=== PATIENT | female | born 1940 | race African-American/Black ===

== ENCOUNTER 2020-08-23 12:32 | Outpatient (REF) | payer MEDICARE, SELFPAY ==
--- NOTE | 2020-08-23 16:00 | MHC.AU.MED ---
Medical Clearance for Hearing Instrumentation Date: 08/27/20 Patient Name: Jerica Howard Date of : 1940 Referring Provider: Jeffrey White MD We have seen your patient on 08/27/20 and have determined that they are a candidate for amplification (See accompanying report). Specifically, they would benefit from: Hearing aid use in both ears There is a statute that addresses Medical Evaluation Requirements prior to fitting a patient with a hearing aid. According to [place] statute [facility] CMR:6.03(1), (a) General. Except as provided in 265 CMR 6.03(1)(b), a lace inspector shall not sell a hearing aid unless the prospective user has presented to the lace inspector a written statement signed by a licensed physician that states that the patient's hearing loss has been medically evaluated and the patient may be considered a candidate for a hearing aid. The medical evaluation must have taken place within the preceding six months. Please note: Due to the [place] Statute referenced above, we cannot accept a signature other than that of a licensed physician. BROADCAST JOURNALIST and PA signatures cannot be accepted. I am in agreement with the above recommendation. There is no medical contraindication for hearing instrumentation. Physician Signature Date Physician Name (Printed)
--- NOTE | 2020-08-23 16:05 | MHC.AU.P13 ---
Adult Audiological Evaluation Date of Visit: 08/23/20 Reason for Appointment: Audiological evaluation due to concern for decreased hearing. Her daughter notes that she doesn't always seem to hear well. Does patient feel they have a hearing loss?: Yes If Yes, Which Ear?: Both Ears Has hearing been tested previously?: No Hearing Handicap Inventory: HHIE SCORE: 16 Based on HHIE score, patient has: Mild to moderate perceived hearing handicap Ear History: History of Ear Wax Buildup: Both Ears Medical History: Medical History: Dizziness or Unsteadiness, High Blood Pressure Medical History (Other): Hysterectomy, gall bladder, tonsils, appendix removed. Cognitive decline Otoscopy: Right Ear: Partially occluded with cerumen Left Ear: Partially occluded with cerumen Tympanometry: Tympanometry performed due to: To assess integrity of the middle ear system Right Ear: Hypercompliant Middle Ear System (Type Ad) Left Ear: Normal Middle Ear System (Type A) Hearing Evaluation: Transducer(s) Used: Insert Earphones, Bone Conduction Method: Conventional Audiometry Stimuli Used: Pure Tones Right Ear: Description of Hearing: Normal hearing 250-500 Hz, sloping to a mild to moderately severe sensorineural hearing loss from 3988-4573 Hz. Left Ear: Description of Hearing: Normal hearing 250-500 Hz, sloping to a mild to moderately severe sensorineural hearing loss from 6951-3715 Hz. Speech Recognition Threshold (SRT): Method Used: Monitored Live Voice Stimuli Used: Spondee Words Right Ear: 30 dBHL Left Ear: 25 dBHL Word Discrimination: Method: Recorded Lists Word Lists Used: NU-6 Right Ear: 96% at 70 dBHL Left Ear: 88% at 70 dBHL Recommendations: Audiological re-evaluation in one year. Trial with amplification is recommended. Medical clearance from a physician is required before fitting. Hearing Aid Fitting will be scheduled when all materials arrive. See Hearing Aid Evaluation report for more information. Hearing aid(s) will be ordered after approval is received. Diagnosis: Primary Diagnosis: H90.3 Bilateral Sensorineural Hearing Loss Services Performed: Services Performed: Comprehensive Audiological Evaluation (CPT 99535) Tympanometry (CPT 06788) Signature: Provider: Abilio Collazo, CCC-A
--- NOTE | 2020-08-23 16:06 | MHC.AU.P13 ---
Hearing Aid Evaluation- Binaural Date of Visit: 08/23/20 Description of Hearing: Mild sloping to moderately severe sensorineural hearing loss bilaterally. Current Hearing Instrument Information: None Additional Information: Ms. Howard was diagnosed with a mild to moderately severe sensorineural hearing loss bilaterally. She and her daughter note that she does not always hear well and requires repetition. Binaural amplification is recommended to facilitate improved communication. Hearing Instrument Selection: Right Ear: Program Or Project Administrator: Phonak Model: Audeo M70-R Battery Size: Rechargeable Color: Sand beige Microbiology Instructor: Size 1 M Type of Mold: C-Shell Left Ear: Program Or Project Administrator: Phonak Model: Audeo M70-R Battery Size: Rechargeable Color: Sand beige Microbiology Instructor: Size 1 M Type of Mold: C-Shell Plan: Plan of Care for Hearing Instrument Fitting: Patient wishes to purchase hearing aids as prescribed Action Taken/Action Needed: Earmold Impressions Taken Prior authorization to be requested Medical Clearance to be requested from PCP/ENT Hearing Fitting to be scheduled when materials arrive Signature: Provider: Abilio Collazo, CCC-A
--- NOTE | 2020-08-27 11:01 | MHC.AU.P13 ---
Adult Audiological Evaluation Date of Visit: 08/27/20 Reason for Appointment: Audiological evaluation due to concern for decreased hearing. Her daughter notes that she doesn't always seem to hear well. Does patient feel they have a hearing loss?: Yes If Yes, Which Ear?: Both Ears Has hearing been tested previously?: No Hearing Handicap Inventory: HHIE SCORE: 16 Based on HHIE score, patient has: Mild to moderate perceived hearing handicap Ear History: History of Ear Wax Buildup: Both Ears Medical History: Medical History: Dizziness or Unsteadiness, High Blood Pressure Medical History (Other): Hysterectomy, gall bladder, tonsils, appendix removed. Cognitive decline Otoscopy: Right Ear: Partially occluded with cerumen Left Ear: Partially occluded with cerumen Tympanometry: Tympanometry performed due to: To assess integrity of the middle ear system Right Ear: Hypercompliant Middle Ear System (Type Ad) Left Ear: Normal Middle Ear System (Type A) Hearing Evaluation: Transducer(s) Used: Insert Earphones, Bone Conduction Method: Conventional Audiometry Stimuli Used: Pure Tones Right Ear: Description of Hearing: Normal hearing 250-500 Hz, sloping to a mild to moderately severe sensorineural hearing loss from 0408-1797 Hz. Left Ear: Description of Hearing: Normal hearing 250-500 Hz, sloping to a mild to moderately severe sensorineural hearing loss from 2584-9404 Hz. Speech Recognition Threshold (SRT): Method Used: Monitored Live Voice Stimuli Used: Spondee Words Right Ear: 30 dBHL Left Ear: 25 dBHL Word Discrimination: Method: Recorded Lists Word Lists Used: NU-6 Right Ear: 96% at 70 dBHL Left Ear: 88% at 70 dBHL Recommendations: Audiological re-evaluation in one year. Trial with amplification is recommended. Medical clearance from a physician is required before fitting. Hearing Aid Fitting will be scheduled when all materials arrive. See Hearing Aid Evaluation report for more information. Hearing aid(s) will be ordered after approval is received. Diagnosis: Primary Diagnosis: H90.3 Bilateral Sensorineural Hearing Loss Services Performed: Services Performed: Comprehensive Audiological Evaluation (CPT 74691) Tympanometry (CPT 04089) Signature: Provider: Abilio Collazo, CCC-A
--- NOTE | 2020-08-27 11:03 | MHC.AU.P13 ---
Hearing Aid Evaluation- Binaural Date of Visit: 08/27/20 Description of Hearing: Mild sloping to moderately severe sensorineural hearing loss bilaterally. Current Hearing Instrument Information: None Additional Information: Ms. Howard was diagnosed with a mild to moderately severe sensorineural hearing loss bilaterally. She and her daughter note that she does not always hear well and requires repetition. Binaural amplification is recommended to facilitate improved communication. Hearing Instrument Selection: Right Ear: Combatant Diver Qualified: Phonak Model: Audeo M70-R Battery Size: Rechargeable Color: Sand beige Bus Analyst: Size 1 M Type of Mold: C-Shell Left Ear: Combatant Diver Qualified: Phonak Model: Audeo M70-R Battery Size: Rechargeable Color: Sand beige Bus Analyst: Size 1 M Type of Mold: C-Shell Plan: Plan of Care for Hearing Instrument Fitting: Patient wishes to purchase hearing aids as prescribed Action Taken/Action Needed: Earmold Impressions Taken Prior authorization to be requested Medical Clearance to be requested from PCP/ENT Hearing Fitting to be scheduled when materials arrive Signature: Provider: Abilio Collazo, CCC-A
== END 2020-08-23 12:33 | disposition home or self-care (01) ==
LOC: HO.SH 12:32
PROVIDERS: Visit Provider Family Medicine
DX: Z46.1 Encounter for fitting and adjustment of hearing aid (principal); H90.3 Sensorineural hearing loss, bilateral
CPT/HCPCS: 92557; 92567; 92591; V5275

== ENCOUNTER 2020-11-22 09:51 | Outpatient (REF) | payer MEDICARE, SELFPAY | END 2020-11-22 09:52 | disposition home or self-care (01) | LOC: HO.HAP 09:51 | PROVIDERS: Visit Provider Family Medicine | DX: Z46.1 Encounter for fitting and adjustment of hearing aid (principal); H90.3 Sensorineural hearing loss, bilateral | CPT/HCPCS: V5011; V5020; V5160; V5261; V5264 ==

== ENCOUNTER 2020-12-10 13:42 | Outpatient (REF) | payer MEDICARE, SELFPAY | END 2020-12-10 13:43 | disposition home or self-care (01) | LOC: HO.LNP 13:42 | PROVIDERS: Visit Provider Family Medicine | DX: R30.0 Dysuria (principal) | CPT/HCPCS: 87086 ==

== ENCOUNTER 2021-02-12 10:58 | Outpatient (REF) | payer MEDICARE, SELFPAY ==
[2021-02-12 12:22] LABS: Blood Urea Nitrogen 5 mg/dL (9-16); Estimated Glomerular Filt Rate > 60
== END 2021-02-12 10:59 | disposition home or self-care (01) ==
LOC: HO.LAB 10:58
PROVIDERS: PCP Family Medicine; Visit Provider Psychiatry & Neurology Neurology
DX: G30.9 Alzheimer's disease, unspecified (principal)
CPT/HCPCS: 36415; 82565; 84520

== ENCOUNTER 2021-02-12 11:23 | Emergency (ER) | payer MEDICARE, SELFPAY ==
--- NOTE | ~2021-02-12 | CT_ITS ---
EXAMINATION: CT ABDOMEN AND PELVIS WITHOUT CONTRAST CLINICAL INFORMATION: Abdominal pain and weight loss COMPARISON: None TECHNIQUE: Multidetector volumetric imaging was performed from the superior aspect of the liver through the pubic symphysis. Sagittal and coronal reformatted images were obtained on the technologist's workstation. This CT examination was performed using dose optimization techniques as appropriate, variously including the following: *Automated exposure control *Adjustment of mA and/or kV according to patient size (this includes techniques or standardized protocols for targeted exams where dose is matched to indication/reason for exam; i.e. extremities or head) *Use of iterative reconstruction technique DLP: 471 mGy-cm FINDINGS: LUNG BASES: The visualized lung bases are unremarkable. LIVER, GALLBLADDER, AND BILIARY TREE: There is peripheral capsular calcification along the surface of the liver. Liver is otherwise unremarkable. The gallbladder is been removed. There is no biliary duct dilatation. PANCREAS: Unremarkable. SPLEEN: Unremarkable. ADRENAL GLANDS: Unremarkable. KIDNEYS AND URETERS: The kidneys are normal in size, shape, and attenuation. No hydronephrosis, hydroureter, or calculi seen. No perinephric stranding. BLADDER: There is question of wall thickening along the anterior wall of the bladder. GASTROINTESTINAL TRACT: The small and large bowel are unremarkable. The appendix is not identified. The stomach is not optimally distended. ABDOMINAL WALL: No significant hernia is appreciated. There are postsurgical changes to the anterior abdominal wall. There is increased soft tissue superficial to the left pubic symphysis, question representing postsurgical change axial image 73 series 3 and coronal reconstructed image 18 LYMPH NODES: Normal. VASCULAR: There is evidence of atherosclerotic disease. No aneurysm is seen. PELVIC VISCERA: The uterus appears to have been removed. No pelvic mass is seen. There are small peritoneal calcifications in the pelvis. There is no ascites. OSSEOUS STRUCTURES: There are degenerative changes of the spine. CT/CT abdomen pelvis wo con IMPRESSION: Peripheral or capsular calcifications of the liver and small peritoneal calcifications in the pelvis. Question mild anterior bladder wall thickening of the anterior bladder wall.
[2021-02-12 11:33] VITALS: BP 138/74; PULSE 67; RESP 18; O2SAT 97; BMI 22.6
--- NOTE | 2021-02-12 11:53 | ED.ABDPAIN ---
HPI - Abdominal Pain General Chief Complaint: Abdominal Pain Stated Complaint: abd pain Time Seen by Provider: 02/12/21 11:52 Source: patient and family (Daughter) Mode of arrival: ambulatory Limitations: no limitations History of Present Illness HPI narrative: 80 years old female brought in by her daughter for evaluation of abdominal pain and weight loss for the past month. Patient was at neurology office for follow-up for Alzheimer dementia, daughter brought the patient because she concern of losing 30 lb in the past month, and left abdominal pain that is intermittent started about a month ago localized to the left mid abdomen, no other associated symptoms no fever, no chills. No nausea, no vomiting, normal bowel movement. Related Data Home Medications Medication Instructions Recorded Confirmed flu vacc (65yr 0.5 ml IM DIRECTED 05/29/20 up)-MF59C(PF) 45 mcg(15 mcgx3)/0.5 mL IM syringe flu vacc (65yr ml IM 05/29/20 up)-MF59C(PF) 60 mcg(15 mcgx4)/0.5 mL IM syringe fluticasone propionate 50 1 spray INTRANASAL DAILY 05/29/20 mcg/actuation nasal spray,suspension ibuprofen 600 mg tablet 0 mg PO 05/29/20 ketotifen fumarate 0.025 % (0.035 1 drp OPHTHALMIC (EYE) BID 05/29/20 %) eye drops lisinopril 20 mg tablet 20 mg PO DAILY 05/29/20 omeprazole 20 mg capsule,delayed 0 mg PO 05/29/20 release trazodone 100 mg tablet 100 mg PO BEDTIME 12/10/20 trazodone 50 mg tablet 50 mg PO BEDTIME PRN 01/17/21 Previous Rx's Medication Instructions Recorded underpads 23 X 36 #72 ea 06/12/20 walker #1 ea 07/05/20 pull ups briefs #60 ea 07/08/20 amlodipine 10 mg tablet 10 mg PO DAILY #90 tab NS 09/12/20 atenolol 25 mg tablet 25 mg PO DAILY #90 tab 09/12/20 atorvastatin 40 mg tablet 40 mg PO DAILY #90 tab 09/12/20 loratadine 10 mg tablet 10 mg PO DAILY #90 tab NS 09/12/20 memantine 28 mg capsule 28 mg PO DAILY #90 cap 09/12/20 sprinkle,extended release 24hr donepezil 10 mg tablet 10 mg PO DAILY 30 Days #30 tab 10/17/20 gabapentin 100 mg capsule 100 mg PO BID #60 cap 11/28/20 topiramate 50 mg tablet 50 mg PO DAILY #30 tab 12/10/20 prednisone 20 mg tablet 40 mg PO DAILY 5 Days #10 tab 01/17/21 acetaminophen 325 mg tablet 650 mg PO Q6H PRN #360 tab 01/23/21 trazodone 50 mg tablet 25 - 50 mg PO BEDTIME PRN #30 tab 01/23/21 Allergies Allergy/AdvReac Type Severity Reaction Status Date / Time No Known Allergies Allergy Verified 02/12/21 11:52 Review of Systems Review of Systems All other systems are reviewed and are negative Constitutional: Reports as per HPI and Reports no additional constitutional complaints Eyes: Reports as per HPI and Reports no additional eye complaints Reports system reviewed and no additional complaints, except as documented Cardiovascular: Reports as per HPI and Reports no additional cardiovascular complaints Respiratory: Reports as per HPI and Reports no additional respiratory complaints Gastrointestinal: Reports as per HPI and Reports no additional gastrointestinal complaints Genitourinary: Reports no additional female genitourinary complaints Musculoskeletal: Reports no additional musculoskeletal complaints Skin/Breast: Reports system reviewed and no additional complaints, except as docu Psychiatric: Reports no additional psychiatric complaints Endocrine: Reports no additional endocrine complaints Hematologic/Lymphatic: Reports no additional hematologic/lymphatic complaints Allergic/Immunologic: Reports no additional allergic/immunologic complaints Reports system reviewed and no additional complaints, except as documented and Reports Abnormal speech present Physical Exam Vital Signs: Vital Signs: Last Vital Signs Pulse 67 02/12/21 11:33 Resp 18 02/12/21 11:33 BP 138/74 02/12/21 11:33 Pulse Ox 97 02/12/21 11:33 Body Mass Index 22.6 Vital signs have been reviewed as appeared to be correct. Blood pressure normal. Heart rate normal. Respiration rate normal. Temperature normal. Oxygen saturation normal. Appearance: Alert. Oriented X3. No acute distress. Head: Normal external exam. Normocephalic. Atraumatic. No [place] signs noted. No raccoon eyes noted Eyes: PERRLA. EOMI. Conjunctiva and sclera normal. Eyelids normal. ENT: TM's Normal. Pharynx normal. Uvula midline. Moist mucous membranes. No trismus noted. No drooling noted. No muffled voice noted. Neck: Normal inspection. Neck supple. FROM. No adenopathy. Thyroid Normal. No meningeal signs. No neck mass noted. CVS: Normal heart rate and rhythm. Heart sound normal. No murmurs noted. Pulses normal throughout. Respiratory: No respiratory distress. Painless inspiration. Breath sounds normal. No wheezes/rales/rhonchi noted. Chest nontender. No accessory muscle usage noted or decreased air movement noted. Abdomen: Soft and nontender. Bowel sounds normal in all 4 quadrants. No distention noted. No organomegaly noted. No visible injury noted. Back: No CVA tenderness. Full range of motion noted. Skin: Skin warm and dry. Normal skin color. Normal skin turgor. No rashes/lesions/lacerations noted. Extremities: No lower extremity edema. Extremities exhibit normal range of motion. Extremities nontender. Neuro: Oriented X 3. Cranial nerve exam: II-XII are grossly intact No motor deficit. No sensory deficit. Reflexes normal. Course Course Course Narrative: Assessment and plan. 80-year-old female came in after she lost 25 lb over a month, complaining of abdominal pain. CT of the abdomen pelvis nothing to explain patient's symptoms, labs are unremarkable. As discussed with daughter patient will require further endoscopy specially patient never had one. MDM - Abdominal Pain Lab Data Attestation: I reviewed the patient's lab results. Result diagrams: 02/12/21 12:49 02/12/21 12:19 Labs: Lab Results 02/12/21 02/12/21 02/12/21 Range/Units 11:49 12:19 12:49 WBC 5.1 (4.8-10.8) X10*3/uL RBC 4.97 (4.20-5.50) X10*6/uL Hgb 13.8 (12.0-16.0) g/dl Hct 40.8 (37-47) % MCV 82.1 (80-98) fL MCH 27.8 (27.0-33.0) pg MCHC 33.8 (31.0-35.0) g/dl RDW 16.4 H (11.0-16.0) % Plt Count 478 H (160-400) X10*3/uL MPV 9.6 (9.4-12.3) fL Immature Gran % (Auto) 0.2 (0.0-0.4) % Neut % (Auto) 60.7 (45-73) % Lymph % (Auto) 28.8 (20-40) % [place] % (Auto) 8.5 (2-11) % Eos % (Auto) 1.4 (0-4) % Baso % (Auto) 0.4 (0-2) % Lymph # (Auto) 1.5 (1.2-4.9) X10*3/uL [place] # (Auto) 0.4 (0.1-1.2) X10*3/uL Eos # (Auto) 0.1 (0.0-0.4) X10*3/uL Baso # (Auto) 0.0 (0.0-0.2) X10*3/uL Abs Immat Gran (auto) 0.01 (0.00-0.03) X10*3/uL Absolute Neuts (auto) 3.1 (2.0-8.3) X10*3/uL Absolute Nucleated RBC 0.000 (0.0-0.012) X10*3/uL Nucleated RBC % (auto) 0.0 (0.0-0.2) /100WBC Sodium 135 (135-145) mmol/L Potassium 4.1 (3.3-5.1) mmol/L Chloride 106 (96-108) mmol/L Carbon Dioxide 21 L (22-29) mmol/L Anion Gap 12 (12-20) BUN 5 L (9-16) mg/dL Creatinine 0.76 (0.5-1.4) mg/dL Estim Creat Clear Calc 54.3 Estimated GFR > 60 Random Glucose 84 (60-115) mg/dL Calcium 10.1 (8.4-10.2) mg/dL Total Bilirubin 0.6 (0.0-1.0) mg/dL Direct Bilirubin 0.2 (0.0-0.5) mg/dL AST 17 (5-31) U/L ALT 15 (0-31) U/L Alkaline Phosphatase 58 (39-117) U/L Total Protein 6.7 (6.5-8.0) g/dL Albumin 4.2 (3.5-5.0) g/dL Lipase 36 (8-78) U/L Urine Color YELLOW Urine Appearance CLEAR Urine pH 6.5 (5.0-8.0) Ur Specific [place] <= 1.005 (1.005-1.025) Urine Protein NEG (NEG-TRACE) MG/DL Urine Glucose (UA) NEG (NEG) MG/DL Urine Ketones NEG (NEG) MG/DL Urine Blood NEG (NEG) Urine Nitrite NEG (NEG) Ur Leukocyte Esterase TRACE H (NEG) Urine RBC 0 (0) /HPF Urine WBC 0-2 (0-4) /HPF Ur Squamous Epith Cells 1+ /LPF Urine Bacteria TRACE /LPF Imaging Data CT scan - abdomen: Radiologist's impression: Peripheral or capsular calcifications of the liver and small peritoneal calcifications in the pelvis. Question mild anterior bladder wall thickening of the anterior bladder wall.? Discharge Plan Discharge Clinical Impression: Abdominal pain Patient Disposition: Home, Self-Care Instructions: Abdominal Pain (ED) Prescriptions: No Action (DME) walker Misc See Rx Instructions .ROUTE .MEDSUPPLY Qty: 1 RF: 0 amlodipine 10 mg tablet 10 mg PO DAILY Qty: 90 RF: 1 atenolol 25 mg tablet 25 mg PO DAILY Qty: 90 RF: 1 atorvastatin 40 mg tablet 40 mg PO DAILY Qty: 90 RF: 1 loratadine 10 mg tablet 10 mg PO DAILY Qty: 90 RF: 1 memantine 28 mg capsule,sprinkle,ER 24hr 28 mg PO DAILY Qty: 90 RF: 1 donepezil 10 mg tablet 10 mg PO DAILY 30 Days Qty: 30 RF: 2 gabapentin 100 mg capsule 100 mg PO BID Qty: 60 RF: 4 acetaminophen 325 mg tablet 650 mg PO Q6H PRN (Reason: for fever) Qty: 360 RF: 3 trazodone 50 mg tablet 25 - 50 mg PO BEDTIME PRN (Reason: for insomnia) Qty: 30 RF: 1 omeprazole 20 mg capsule,delayed release(DR/EC) 0 mg PO RF: 0 lisinopril 20 mg tablet 20 mg PO DAILY RF: 0 Fluad Quad 2019-(65y up)(PF) 60 mcg (15 mcg x 4)/0.5 mL syringe IM RF: 0 fluticasone propionate 50 mcg/actuation spray,suspension 1 spray intranasal DAILY RF: 0 ketotifen fumarate 0.025 % (0.035 %) drops 1 drp ophthalmic (eye) BID RF: 0 Fluad 9459-1990 (65 yr up)(PF) 45 mcg (15 mcg x 3)/0.5 mL syringe 0.5 ml IM DIRECTED RF: 0 ibuprofen 600 mg tablet 0 mg PO RF: 0 (DME) underpads 23 X 36 pad See Rx Instructions .ROUTE .MEDSUPPLY Qty: 72 RF: 0 (DME) pull ups briefs large See Rx Instructions .Route .MEDSUPPLY Qty: 60 RF: 11 topiramate 50 mg tablet 50 mg PO DAILY Qty: 30 RF: 3 prednisone 20 mg tablet 40 mg PO DAILY 5 Days Qty: 10 RF: 0 Referrals: Jordon Gray MD [Physician] - 2 days PMF Past Medical History Surgical History History of gynecologic surgery History of hysterectomy History of tonsillectomy Hx of cholecystectomy Family History Family History Father No problems noted. Mother No problems noted. Daughter No problems noted. Social History Social History Housing: Apartment Alcohol intake: never Patient Tobacco Use Status: Never used Tobacco Advance Directives: Yes Advance Directives Information Provided: Yes Advance Directives on File: No service: No Current occupational status: retired
[2021-02-12 11:59] LABS: Glucose Urine UA NEG (NEG); Leukocyte Esterase Urine TRACE (NEG); Nitrite Urine NEG (NEG); PH 6.5 (5.0-8.0); Specific Gravity - Urine <= 1.005 (1.005-1.025); UACC Culture Trigger YES; Urine Blood NEG (NEG); Urine Ketones NEG (NEG); Urine Protein NEG (NEG-TRACE)
[2021-02-12 12:00] LABS: Appearance Urine CLEAR; Color Urine YELLOW
[2021-02-12 12:17] LABS: Bacteria Urine TRACE /LPF; RBC Urine 0 /HPF (0); Squamous Epithelial Cell Urine 1+ /LPF; WBC Urine 0-2 /HPF (0-4)
--- NOTE | 2021-02-12 12:49 | PC.NURSE ---
PATIENT DIFFICULT STICK, DRAWN BY SEVERAL PEOPLE AND LABS WERE HEMOLYZED. PATIENT PHLEBOTOMY WAS CALLED TO TRY TO DRAW BLOOD WORK.
[2021-02-12 12:50] LABS: Alanine Aminotransferase 15 U/L (0-31); Albumin Level 4.2 g/dL (3.5-5.0); Alkaline Phosphatase 58 U/L (39-117); Anion Gap 12 (12-20); Aspartate Amino Transferase 17 U/L (5-31); Bilirubin Direct 0.2 mg/dL (0.0-0.5); Bilirubin Total 0.6 mg/dL (0.0-1.0); Blood Urea Nitrogen 5 mg/dL (9-16); Calcium 10.1 mg/dL (8.4-10.2); Carbon Dioxide 21 mmol/L (22-29); Chloride 106 mmol/L (96-108); Creatinine Clr Calc Pharmacy 54.3; Estimated Glomerular Filt Rate > 60; Glucose Random 84 mg/dL (60-115); Lipase 36 U/L (8-78); Potassium 4.1 mmol/L (3.3-5.1); Sodium 135 mmol/L (135-145); Total Protein 6.7 g/dL (6.5-8.0)
[2021-02-12 12:55] LABS: Basophils Percent Auto 0.4 % (0-2); Eosinophils Absolute Auto 0.1 X10*3/uL (0.0-0.4); Eosinophils Percent Auto 1.4 % (0-4); Hematocrit 40.8 % (37-47); Hemoglobin 13.8 g/dl (12.0-16.0); Imm Gran Abs Auto 0.01 X10*3/uL (0.00-0.03); Imm Gran Pct Auto 0.2 % (0.0-0.4); Lymphocytes Absolute Auto 1.5 X10*3/uL (1.2-4.9); Lymphocytes Percent Auto 28.8 % (20-40); Mean Corpuscular HGB Conc 33.8 g/dl (31.0-35.0); Mean Corpuscular Hemoglobin 27.8 pg (27.0-33.0); Mean Corpuscular Volume 82.1 fL (80-98); Mean Platelet Volume 9.6 fL (9.4-12.3); Monocytes Absolute Auto 0.4 X10*3/uL (0.1-1.2); Monocytes Percent Auto 8.5 % (2-11); Neutrophils Absolute Auto 3.1 X10*3/uL (2.0-8.3); Neutrophils Percent Auto 60.7 % (45-73); Platelet Count 478 X10*3/uL (160-400); Red Blood Count 4.97 X10*6/uL (4.20-5.50); Red Cell Distribution Width 16.4 % (11.0-16.0); White Blood Count 5.1 X10*3/uL (4.8-10.8)
[2021-02-12 13:24] VITALS: BP 156/71; PULSE 63; RESP 18; O2SAT 98
== END 2021-02-12 13:28 | disposition home or self-care (01) ==
PROVIDERS: Emergency Provider Emergency Medicine; PCP Family Medicine
DX: R10.9 Unspecified abdominal pain (principal); Z79.899 Other long term (current) drug therapy
CPT/HCPCS: 36415; 74176; 80048; 80076; 81001; 83690; 85025; 87086; 99284

== ENCOUNTER 2021-03-05 13:19 | Outpatient (REF) | payer MEDICARE, SELFPAY ==
--- NOTE | ~2021-03-05 | MR_ITS ---
EXAMINATION: MR BRAIN WITHOUT CONTRAST CLINICAL INFORMATION: Insomnia and migraine. No brain tumor. COMPARISON: Head CT 11/29/2019. TECHNIQUE: Multiplanar, multisequence imaging of the brain was performed without intravenous contrast. The patient declined contrast administration. FINDINGS: There is no acute infarction, mass, hemorrhage, or extra-axial collection. Moderate patchy foci of T2/FLAIR hyperintensity are seen in the cerebral white matter and central natanael most typical of chronic microangiopathy. The ventricles and sulci are commensurate with mild degree of brain parenchymal volume loss noted. The flow voids of the major intracranial arteries appear intact. The bones and extracranial soft tissues are unremarkable. MR/MR head/brain wo con IMPRESSION: Motion degraded exam without evidence of acute intracranial abnormality. Background changes of moderate chronic microangiopathy.
== END 2021-03-05 13:20 | disposition home or self-care (01) ==
LOC: HO.MRI 13:19
PROVIDERS: PCP Family Medicine; Visit Provider Psychiatry & Neurology Neurology
DX: G30.9 Alzheimer's disease, unspecified (principal); F02.80 Dementia in other diseases classified elsewhere, unspecified severity, without behavioral disturbance, psychotic disturbance, mood disturbance, and anxiety; G47.00 Insomnia, unspecified; R63.4 Abnormal weight loss
CPT/HCPCS: 70551

== ENCOUNTER → 2021-04-15 12:56 | Outpatient (BNVA) | payer MEDICARE, SELFPAY | PROVIDERS: PCP Family Medicine; Referring Provider Family Medicine; Visit Provider Nurse Practitioner | DX: R10.30 Lower abdominal pain, unspecified (principal); R63.4 Abnormal weight loss | CPT/HCPCS: 99202 ==

== ENCOUNTER 2021-07-15 07:22 | Day surgery (SDC) | payer MEDICARE, SELFPAY ==
[2021-07-09 16:29] VITALS: BMI 23.9
--- NOTE | 2021-07-14 10:45 | HO.ANESPROP2 ---
Documented by User: Sowmya Morales NP 07/14/21 10:46 HPI - Anesthesia Eval Consult details Narrative: 80yo F for Upper Endoscopy and Colonoscopy [facility] Active Problems Active Problems: All Active Problems (Updated 07/09/21 @ 16:35 by Ashley Stuart RN) Unsteady gait (Acute) Osteoarthritis of right knee (Acute) Lower extremity weakness (Acute) Incontinence of urine (Acute) Alzheimer's dementia with behavioral disturbance (Acute) Right calf pain (Acute) Insomnia (Acute) Decreased hearing of right ear (Acute) Headache (Acute) Dysuria (Acute) Post-nasal drip (Acute) Abdominal pain (Acute) Weight loss (Acute) Lower abdominal pain (Acute) Screening due (Acute) Past Medical History Medical History Alzheimer's dementia HTN (hypertension) Osteoarthritis of right knee Post-nasal drip Family History Family History Father No problems noted. Mother No problems noted. Daughter No problems noted. Surgical History Surgical History History of gynecologic surgery History of hysterectomy History of tonsillectomy Hx of cholecystectomy Social History Social History Household Members Other:: chace Chase Housing: Apartment Alcohol intake: never Patient Tobacco Use Status: Never used Tobacco Are you DNR?: No Advance Directives: No Advance Directives Information Provided: Yes Advance Directives on File: No Recently lost weight without trying: Yes How much weight loss: 34pounds or more Eating poorly because of decreased appetite: No Nutrition screen score: 6 service: No Current occupational status: retired Meds Allergies Allergy/AdvReac Type Severity Reaction Status Date / Time No Known Allergies Allergy Verified 07/11/21 12:55 Home Medications Medication Instructions Recorded Confirmed Last Taken Type ketotifen fumarate 0.025 % (0.035 1 drp OPHTHALMIC (EYE) BID PRN 05/29/20 07/09/21 Unknown History %) eye drops lisinopril 20 mg tablet 20 mg PO DAILY 05/29/20 07/09/21 Unknown History trazodone 100 mg tablet 150 mg PO BEDTIME 12/10/20 04/30/21 Unknown History Exam Exam Date and Time: July 14, 2021 1045 Height,Weight and Vital Signs: Height 5 ft 2 in Weight 59.421 kg Assessment and Plan Assessment Anesthesia Assessment: Chart Reviewed Documented by User: Manuel Reyes 07/15/21 08:56 PMFSH Past Medical History Medical History Alzheimer's dementia HTN (hypertension) Osteoarthritis of right knee Post-nasal drip Family History Family History Father No problems noted. Mother No problems noted. Daughter No problems noted. Family history of problems with anesthesia: No Surgical History Surgical History History of gynecologic surgery History of hysterectomy History of tonsillectomy Hx of cholecystectomy History of Problems with Anesthesia: No Social History Social History Household Members Other:: chace Chase Housing: Apartment Alcohol intake: never Patient Tobacco Use Status: Never used Tobacco Are you DNR?: No Advance Directives: No Advance Directives Information Provided: Yes Advance Directives on File: No Recently lost weight without trying: Yes How much weight loss: 34pounds or more Eating poorly because of decreased appetite: No Nutrition screen score: 6 service: No Current occupational status: retired Meds Allergies Allergy/AdvReac Type Severity Reaction Status Date / Time No Known Allergies Allergy Verified 07/11/21 12:55 Home Medications Medication Instructions Recorded Confirmed Last Taken Type ketotifen fumarate 0.025 % (0.035 1 drp OPHTHALMIC (EYE) BID PRN 05/29/20 07/09/21 Unknown History %) eye drops lisinopril 20 mg tablet 20 mg PO DAILY 05/29/20 07/09/21 Unknown History trazodone 100 mg tablet 150 mg PO BEDTIME 12/10/20 04/30/21 Unknown History Exam Airway Mallampati Class: II Neck ROM: Full Denture: Upper and Lower Loose/Missing/Broken Teeth: Yes Heart: rrr Lungs: bl breath sounds Assessment and Plan Assessment Anesthesia Assessment: Anesthesia Plan Discussed Final Anesthetic Review Family History of Problems with Anesthesia: No History of Problems with Anesthesia: No NPO: Yes ASA Class: II Final Preanesthetic Review: Meds/Allgs Chart Reviewed and Anes Risks/Benef Reviewed Patient Risk: Intermediate Procedure Risk: Intermediate Anesthetic Plan Anesthetic Plan: MAC: Disposition: Standard PACU
--- NOTE | 2021-07-15 07:49 | MHC.SHP ---
Pre-Procedural Eval Section A Date of Service: 07/15/21 The patient is an INPATIENT: No The History & Physical has been completed within 30 days and I have reviewed it.: No Section B Chief Complaint: abnormal weight loss,lower abd pain Details of Present Illness: abdominal pain, poor PO intake, wt loss Relevant Family History (Specify if Yes): No Relevant Social History: None Present Medications: see Short Stay Collaborative assessment Medical History: Significant History (dementia, Htn, wt loss) History of Previous Operations: Relevant previous surgery/procedure and date(s) (History of gynecologic surgery History of hysterectomy History of tonsillectomy Hx of cholecystectomy) Allergies: Allergies Allergy/AdvReac Type Severity Reaction Status Date / Time No Known Allergies Allergy Verified 07/11/21 12:55 Review of Systems Sugical H&P ROS: Negative: Constitution, Cardiovascular and Respiratory and Yes, Specify: Neurological (dementia) and Gastrointestinal (wt loss) Exam Surgical H&P Exam: Normal: Heart, Normal: Lungs, Normal: Extremities and Normal: Abdomen Plan Diagnosis/Plan: Unchanged I have reviewed the history and physical and performed a pertinent physical examination on my patient. No changes have occurred unless specified.
[2021-07-15 07:58] VITALS: BP 133/70; PULSE 70; RESP 18; TEMP 36.6; O2SAT 99
[2021-07-15] MEDS: Lactated Ringers 1,000 ML 100 ML IVCONT (08:03)
--- NOTE | 2021-07-15 08:52 | P.BOP_ITS ---
Brief Operative Note Date of Service: 07/15/21 Pre-op diagnosis: abdominal pain, poor PO intake, wt loss Post-op diagnosis: other (Hiatal hernia, gastritis, diverticulosis, hemorrhoids ) Procedure: FLEXIBLE TRANSORAL UPPER GASTROINTESTINAL ENDOSCOPY WITH BIOPSIES AND COLONOSCOPY TILL CECUM WITH BIOPSIES UPPER ENDOSCOPY Consent: Indications for the procedure and potential complications of bleeding, perforation, reaction to medications and missed diagnosis were discussed with the patient's daughter and HCP and informed consent was obtained from the daughter.. Instrument: Olympus GIF H 190 mid size upper endoscope Monitoring: Vital signs and clinical assessment, continuous EKG monitoring, Pulse oximetry, Carbon Dioxide monitoring and blood pressure monitoring were done throughout the procedure. Procedure: The patient was placed in the left lateral decubitis position and pre-procedure medications were administered and a bite block was placed. The endoscope was inserted into the mouth and advanced under direct vision to the third part of duodenum. A careful inspection was made as the upper endoscope was withdrawn including a retroflexed examination of the proximal stomach; Findings and interventions are described below. Findings: Larynx: Normal Esophagus: GE junction at 34 cms, small hiatal hernia 34 to 36 cms. No esophagitis or Ramos's. Stomach: Mild gastric erythema. Biopsies were obtained from the gastric body and antrum. Grade 2 flap valve on retroflexed examination of the cardia. Duodenum: Normal bulb and descending duodenum. Biopsies obtained from 3rd part of duodenum to check for celiac sprue. Intervention: Biopsies as noted above COLONOSCOPY PROCEDURE NOTE Consent: Indications for the procedure and potential complications of bleeding, perforation, reaction to medications and missed diagnosis were discussed with the patient and informed consent was obtained. Instrument: Olympus PCF H 190 L variable stiffness pediatric colonoscope Monitoring: Vital signs and clinical assessment, intermittent blood pressure monitoring, continuous EKG monitoring, Pulse oximetry and Carbon Dioxide monitoring were done throughout the procedure. Colon withdrawl time was 13 minutes. Procedure: The patient was placed in the left lateral decubitis position and pre-procedure medications were administered. After a digital rectal examination of the ano-rectum, the video colonoscope was inserted into the rectum and advanced through the colon to the cecum. The colonoscope was slowly withdrawn in a retrograde panoramic fashion and the colon mucosa was carefully examined including a retroflexed view of the rectum. Findings and interventions are described below. Procedure Difficulty: : Without difficulty Findings: Terminal Ileum: 5 cms was examined and appeared normal Cecum: Normal Ascending Colon: Normal Transverse Colon: Normal Descending Colon: Normal Sigmoid Colon: Severe diverticulosis with tortuous colon Rectum: Normal Ano-rectum: Moderate internal hemorrhoids Colon preparation: Good Impression and Post Procedure Diagnosis: Endoscopy Findings: ESOPHAGUS: Small hiatal hernia STOMACH: Gastritis DUODENUM: Normal - biopsied to check for celiac sprue Colonoscopy Findings: No polyps were detected. Random biopsies were obtained from the colon to check for microscopic colitis Severe diverticulosis seen in the sigmoid colon Moderate hemorrhoids on retroflexed exam. No clear etiology found for wt loss - possibly related to patient's dementia Plan: Await pathology results Patient has an appointment on 07/29/21 in the [facility] with Aprli Dupont NP . Repeat screening colonoscopy is not recommended given advanced age and dementia. Diverticulosis handouts were given in the discharge area Surgeon: Prachi Toledo MD Anesthesia: MAC (Dr Reyes) Was an Lap Cutter Truer Operator used for this Procedure?: No Lap Cutter Truer Operator: Yumiko Diaz Estimated blood loss (mL): 0 Pathology: other (A. small bowel bxs, R/O H. celiac B. gastric antrum bxs, R/O H. pylori C. gastric body bxs D. random colon bxs, R/O microscopic colitis) Condition: stable Disposition: PACU
--- NOTE | 2021-07-15 08:53 | P.OP_ITS ---
Operative Note Operative Note Date of Service: 07/15/21 Narrative: Pre-op diagnosis:?abdominal pain, poor PO intake, wt loss Post-op diagnosis:?other (Hiatal hernia, gastritis, diverticulosis, hemorrhoids ) Procedure:? FLEXIBLE TRANSORAL UPPER GASTROINTESTINAL ENDOSCOPY WITH BIOPSIES AND COLONOSCOPY TILL CECUM WITH BIOPSIES UPPER ENDOSCOPY Consent:?Indications for the procedure and potential complications of bleeding, perforation, reaction to medications and missed diagnosis were discussed with the patient's daughter and HCP and informed consent was obtained from the daughter.. Instrument:?Olympus GIF H 190 mid size upper endoscope Monitoring: Vital signs and clinical assessment, continuous EKG monitoring, Pulse oximetry, Carbon Dioxide monitoring and blood pressure monitoring were done throughout the procedure. Procedure:?The patient was placed in the left lateral decubitis position and pre-procedure medications were administered and a bite block was placed. The endoscope was inserted into the mouth and advanced under direct vision to the third part of duodenum. A careful inspection was made as the upper endoscope was withdrawn including a retroflexed examination of the proximal stomach; Findings and interventions are described below. Findings: Larynx:? Normal Esophagus:?GE junction at 34 cms, small hiatal hernia 34 to 36 cms. No esophagitis or Ramos's. Stomach:?Mild gastric erythema. Biopsies were obtained from the gastric body and antrum. Grade 2 flap valve on retroflexed examination of the cardia. Duodenum:?Normal bulb and descending duodenum.? Biopsies obtained from 3rd part of duodenum to check for celiac sprue. Intervention:?Biopsies as noted above COLONOSCOPY PROCEDURE NOTE Consent:?Indications for the procedure and potential complications of bleeding, perforation, reaction to medications and missed diagnosis were discussed with the patient and informed consent was obtained. Instrument:?Olympus PCF H 190 L variable stiffness pediatric colonoscope Monitoring:?Vital signs and clinical assessment, intermittent blood pressure monitoring, continuous EKG monitoring, Pulse oximetry and Carbon Dioxide monitoring were done throughout the procedure. Colon withdrawl time was 13 minutes. Procedure:?The patient was placed in the left lateral decubitis position and pre-procedure medications were administered. After a digital rectal examination of the ano-rectum, the video colonoscope was inserted into the rectum and advanced through the colon to the cecum. The colonoscope was slowly withdrawn in a retrograde panoramic fashion and the colon mucosa was carefully examined including a retroflexed view of the rectum. Findings and interventions are described below. Procedure Difficulty:?: Without difficulty Findings: Terminal Ileum: 5 cms was examined and appeared normal Cecum:? Normal Ascending Colon:??Normal Transverse Colon:??Normal Descending Colon:? Normal Sigmoid Colon:??Severe diverticulosis with tortuous colon Rectum:??Normal Ano-rectum:??Moderate internal hemorrhoids Colon preparation:? Good? Impression and Post Procedure Diagnosis: Endoscopy Findings: ESOPHAGUS: Small hiatal hernia STOMACH: Gastritis DUODENUM: Normal - biopsied to check for celiac sprue Colonoscopy Findings: No polyps were detected. Random biopsies were obtained from the colon to check for microscopic colitis Severe diverticulosis seen in the sigmoid colon Moderate hemorrhoids on retroflexed exam. No clear etiology found for wt loss - possibly related to patient's dementia Plan: Await pathology results Patient has an appointment on 07/29/21 in the GI Clinic with? April Dupont NP . Repeat screening colonoscopy is not recommended given advanced age and dementia. Diverticulosis handouts were given in the discharge area Surgeon:?Prachi Toledo MD Anesthesia:?MAC (Dr Reyes) Was an Facility Rehab Director used for this Procedure?:?No Facility Rehab Director:?Yumiko Diaz Estimated blood loss (mL):?0 Pathology:?other (A. small bowel bxs, R/O H. celiac? B. gastric antrum bxs, R/O H. pylori? C. gastric body bxs? D. random colon bxs, R/O microscopic colitis) Condition:?stable Disposition:?PACU
[2021-07-15 09:51] VITALS: BP 133/68; PULSE 68; RESP 15; TEMP 36.2; O2SAT 100
[2021-07-15 10:06] VITALS: BP 132/64; PULSE 68; RESP 16; TEMP 36.2; O2SAT 100
--- NOTE | 2021-07-15 10:40 | PC.NURSE ---
DISCHARGE INSTRUCTIONS GIVEN TO PATIENT'S DAUGHTER.
== END 2021-07-15 10:41 | disposition home or self-care (01) ==
PROVIDERS: PCP Family Medicine; Visit Provider Internal Medicine Gastroenterology
PROC: (CPT 45380; principal; 2021-07-15 08:30)
DX: R10.30 Lower abdominal pain, unspecified (principal); R63.8 Other symptoms and signs concerning food and fluid intake; R63.4 Abnormal weight loss; Z68.23 Body mass index [BMI] 23.0-23.9, adult; K57.30 Diverticulosis of large intestine without perforation or abscess without bleeding; K64.8 Other hemorrhoids; K29.50 Unspecified chronic gastritis without bleeding; K44.9 Diaphragmatic hernia without obstruction or gangrene; G30.9 Alzheimer's disease, unspecified; F02.81 Dementia in other diseases classified elsewhere, unspecified severity, with behavioral disturbance; I10 Essential (primary) hypertension; Z90.49 Acquired absence of other specified parts of digestive tract
CPT/HCPCS: 45380; 43239; 88305; 88342

== ENCOUNTER → 2021-07-29 12:18 | Outpatient (BNVA) | payer MEDICARE, SELFPAY | PROVIDERS: PCP Family Medicine; Referring Provider Family Medicine; Visit Provider Nurse Practitioner | DX: K30 Functional dyspepsia (principal); R63.4 Abnormal weight loss; G30.9 Alzheimer's disease, unspecified; F02.81 Dementia in other diseases classified elsewhere, unspecified severity, with behavioral disturbance | CPT/HCPCS: 99212 ==